=== PATIENT | male | born 1950 | race Caucasian/White ===

== ENCOUNTER 2021-01-11 08:48 | Day surgery (SDC) | payer MEDICARE, OTHER ==
[~2021-01-11 08:48] MED LIST: Metoclopramide 10 MG/2 ML SDV IV PRN; Sodium Chloride 0.9% 1,000 ML IV SCH
[2021-01-11] MEDS ORDERED: Metoclopramide 10 MG/2 ML SDV IVPUSH SCH (09:15)
[2021-01-11] MEDS ORDERED: Sodium Chloride 0.9% 1,000 ML IV SCH (09:15)
[2021-01-11] MEDS ORDERED: Propofol 1,000 MG/100 ML SDV ONE (09:50)
--- NOTE | 2021-01-11 10:21 | OR ---
DATE OF OPERATION: 01/11/2021 SURGEON: Segundo Rodriguez MD PREOPERATIVE DIAGNOSIS: Screening colonoscopy. POSTOPERATIVE DIAGNOSIS: Screening colonoscopy. PROCEDURE: Colonoscopy. ANESTHESIA: MAC. ESTIMATED BLOOD LOSS: None. COMPLICATIONS: None. INDICATION FOR THE PROCEDURE: The patient is a 70-year-old male here today for screening colonoscopy. Last colonoscopy was about 20 years ago. Denies any change in bowel habits since that time. Denies any family history. DESCRIPTION OF PROCEDURE: Informed consent was obtained for the patient. The patient was taken to the operating room, placed on the table in the left lateral decubitus position. Monitored anesthesia care was administered. Digital rectal exam performed, it was normal. Colonoscope then advanced through the anus, directed towards the cecum. Cecum was reached and identified by the appendiceal orifice and ileocecal valve. Terminal ileum was intubated and appeared normal as well. The colonoscope was slowly withdrawn. No polyps. No masses. No areas of ischemia or inflammation identified. Rectum was also otherwise unremarkable. Colonoscope then fully withdrawn. FINDINGS: Normal terminal ileum and normal colon. RECOMMENDATIONS: We would recommend repeat screening colonoscopy in 10 years. SUSANA /[id number]
== END 2021-01-11 11:10 | disposition home or self-care (01) ==
LOC: LB.SDS 08:48
PROVIDERS: ATTEND Surgery
DX: Z12.11 Encounter for screening for malignant neoplasm of colon (principal); E11.9 Type 2 diabetes mellitus without complications
CPT/HCPCS: 45378; J2704; J7030